=== PATIENT | male | born 1980 | race Caucasian/White ===

== ENCOUNTER 2018-11-14 19:01 | Emergency (ER) | payer SELFPAY ==
[~2018-11-14] VITALS: Ht 177.8 cm; Wt 99.8 kg
[2018-11-14 19:01] VITALS: BP 115/56
--- NOTE | 2018-11-14 19:01 | NUR ---
PATIENT BIB [facility] TO ER BED 8.
--- NOTE | 2018-11-14 19:02 | NUR ---
[facility] AT BEDSIDE.
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
--- NOTE | 2018-11-14 19:13 | NUR ---
Dr. Kong examining patient.
[2018-11-14 19:20] VITALS: BP 115/56
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
== END 2018-11-14 19:20 ==
LOC: MED 19:01
DX: F10.129 Alcohol abuse with intoxication, unspecified (principal); V49.49XA Driver injured in collision with other motor vehicles in traffic accident, initial encounter; W22.10XA Striking against or struck by unspecified automobile airbag, initial encounter; Y93.89 Activity, other specified; Y92.488 Other paved roadways as the place of occurrence of the external cause; Y99.8 Other external cause status
CPT/HCPCS: 99283